=== PATIENT | male | born 1990 | race Native Hawaiian/Other Pacific Islander ===

== ENCOUNTER 2018-03-07 08:34 | Outpatient (CLI) | payer OTHER ==
[~2018-03-07 08:34] MED LIST: GADOPENTETATE DIMEGLUMINE 5 ML VIAL IVP ONE; IOTHALAMATE MEGLUMINE 50 ML VIAL ONE
[2018-03-07] MEDS ORDERED: GADOPENTETATE DIMEGLUMINE 5 ML VIAL IVP ONE ×2 (09:43)
[2018-03-07] MEDS ORDERED: IOTHALAMATE MEGLUMINE 50 ML VIAL IVP ONE ×2 (09:43)
[2018-03-07] MEDS ORDERED: BUFFERED LIDOCAINE 10 ML SYRINGE IU ONE (09:43)
--- NOTE | 2018-03-07 15:20 | XRAY Report ---
Reason: PAIN IN RIGHT SHOULDER Procedure Date: 03/07/2018 Accession Number: [id number] / [id number] Procedure: [place] - Arthrogram Needle Placement CPT Code: FULL RESULT: EXAM: RIGHT SHOULDER ARTHROGRAPHIC INJECTION WITH FLUOROSCOPIC GUIDANCE EXAM DATE: 03/07/2018 08:49 AM. CLINICAL HISTORY: Pain in right shoulder. COMPARISON: None. TECHNIQUE: The risks, benefits, and alternatives of the procedure were discussed with the patient. All questions were answered. Written and verbal consent were obtained. The glenohumeral joint was marked under fluoroscopy and prepped and draped in a sterile manner. Local anesthesia was performed with 1% lidocaine. A 22-gauge needle was then inserted into the glenohumeral joint. 10 mL of a solution containing 25% 1% lidocaine, 25% iodinated contrast, and a 1:200 dilution of gadolinium contrast in sterile saline was then injected. The needle was removed without immediate complication. Other: None. Number of Images: 2. FINDINGS: Bones and joints: No fracture or subluxation. Injection: Fluoroscopic images demonstrate needle placement and contrast in the glenohumeral joint. No contrast extravasation outside of the glenohumeral joint. IMPRESSION: Successful fluoroscopically guided arthrographic injection of the shoulder. [facility]
--- NOTE | 2018-03-07 18:15 | MRI Report ---
Reason: PAIN IN RIGHT SHOULDER Procedure Date: 03/07/2018 Accession Number: [id number] / [id number] Procedure: MRI - Arthrogram Shoulder RT CPT Code: FULL RESULT: EXAM: RIGHT SHOULDER MRI ARTHROGRAM WITH CONTRAST EXAM DATE: 03/07/2018 10:21 AM. CLINICAL HISTORY: Pain in right shoulder. COMPARISON: ARTHROGRAM 03/07/2018 8:49 AM. TECHNIQUE: Multiplanar, multisequence T1-weighted and fluid-sensitive sequences of the shoulder after an arthrographic injection of dilute gadolinium, dictated under a separate exam. Other: None. FINDINGS: Some sequences degraded by patient motion and artifact. Acromioclavicular Region: The acromion is type II. The acromioclavicular joint is unremarkable. The coracoacromial and coracoclavicular ligaments are intact. Small amount of contrast in the far anterior aspect subacromial subdeltoid region, likely related to contrast administration. Glenohumeral Region: No subluxation. No loose bodies. The articular cartilage is unremarkable. Diffuse distortion at the superior glenohumeral ligament. Bone Marrow: No fracture or bone lesion. Labrum: Partial-thickness undersurface tear superior labrum extending deep and anterior to the biceps tendon anchor. Normal variant sulcus versus subtle partial-thickness tear posterior inferior aspect. Biceps Tendon: The long head of the biceps tendon and biceps angel are intact. Musculature/Rotator Cuff: Shallow bursal surface fraying supraspinatus tendon. No contrast-filled tear. Infraspinatus, teres minor, and subscapularis tendons intact. No edema or fatty atrophy. Other: The subcutaneous tissues are unremarkable. IMPRESSION: 1. Undersurface tear superior labrum extending deep and anterior to the biceps anchor (SLAP tear). 2. Normal variant sulcus versus subtle tear posterior inferior labrum. 3. Shallow bursal surface fraying supraspinatus tendon. 4. Diffuse distortion of the superior glenohumeral ligament. A component of this may be related to contrast administration versus strain. [facility] MUSCULOSKELETAL RADIOLOGY SECTION
== END 2018-03-07 08:35 | disposition home or self-care (01) ==
LOC: DI 08:34
PROVIDERS: ATTEND Physician Assistant
DX: S43.431A Superior glenoid labrum lesion of right shoulder, initial encounter (principal)
CPT/HCPCS: 23350; 73222; 77002; Q9961